=== PATIENT | male | born 1985 | race Caucasian/White ===

== ENCOUNTER → 2019-07-03 | Outpatient (CLI) | payer OTHER ==
[2019-07-04 09:33] LABS: BASOPHIL % 0.3 % (0-2); PLATELET COUNT 220 x10^3mcL (130-400); RED CELL DISTRIBUTION WIDTH 12.3 % (11.5-14.5)
[2019-07-04 09:39] LABS: ALBUMIN 4.4 g/dL (3.4-5.0); ALKALINE PHOSPHATASE 82 U/L (46-116); ALT/SGPT 33 U/L (16-63); AST/SGOT 16 U/L (15-37); BILIRUBIN DIRECT 0.11 mg/dL (0.0-0.2); BILIRUBIN TOTAL 0.8 mg/dL (0.20-1.00); CALCIUM 8.6 mg/dL (8.5-10.1); CARBON DIOXIDE 24.8 mmol/L (21-32); CHLORIDE SERUM 107 mmol/L (98-107); GFR1 > 60 mL/min; GLUCOSE SERUM 88 mg/dL (74-106); POTASSIUM SERUM 3.9 mmol/L (3.5-5.1); SODIUM SERUM 144 mmol/L (136-145)
[2019-07-04 09:41] LABS: TOTAL PROTEIN, SERUM 8.3 g/dL (6.4-8.2)
[2019-07-04 09:59] LABS: CHOLESTEROL 184 mg/dL (<200); CHOLESTEROL/HDL RATIO 5.4; HDL CHOLESTEROL 34 mg/dL (40-60); TRIGLYCERIDES 121 mg/dL (<150)
== END | disposition home or self-care (01) ==
LOC: RD 16:08
PROVIDERS: Internal Medicine
DX: Z00.00 Encounter for general adult medical examination without abnormal findings (principal); M54.9 Dorsalgia, unspecified

== ENCOUNTER 2019-07-30 22:47 | Emergency (ER) | payer OTHER ==
[~2019-07-30] VITALS: Ht 165.1 cm; Wt 79.8 kg
[2019-07-30 22:54] VITALS: Ht 165.1 cm; Wt 79.8 kg
[2019-07-31 00:02] LABS: BASOPHIL % 0.3 % (0-2); PLATELET COUNT 239 x10^3mcL (130-400); RED CELL DISTRIBUTION WIDTH 12.2 % (11.5-14.5)
[2019-07-31 00:17] LABS: CALCIUM 8.2 mg/dL (8.5-10.1); CARBON DIOXIDE 26.5 mmol/L (21-32); CHLORIDE SERUM 102 mmol/L (98-107); GFR1 > 60 mL/min; GLUCOSE SERUM 96 mg/dL (74-106); POTASSIUM SERUM 3.4 mmol/L (3.5-5.1); SODIUM SERUM 139 mmol/L (136-145)
[2019-07-31 00:27] LABS: ALBUMIN 4.1 g/dL (3.4-5.0); ALKALINE PHOSPHATASE 84 U/L (46-116); ALT/SGPT 27 U/L (16-63); AST/SGOT 15 U/L (15-37); BILIRUBIN TOTAL 0.6 mg/dL (0.20-1.00)
[2019-07-31 00:29] LABS: T3 TOTAL 1.45 ng/mL
[2019-07-31 00:30] LABS: TOTAL PROTEIN, SERUM 8.3 g/dL (6.4-8.2)
[2019-07-31 01:01] LABS: FREE T4 1.16 ng/dL (0.76-1.46); FREE THYROXINE INDEX 2.4 ug/dL (1.4-4.5); T4(THYROXINE) 6.8 ug/dL (4.7-13.3)
[2019-07-31 01:47] VITALS: BP 164/98
== END 2019-07-31 01:47 | disposition home or self-care (01) ==
LOC: ED 22:47
PROVIDERS: Emergency Medicine
DX: R07.89 Other chest pain (principal); R00.2 Palpitations; J45.909 Unspecified asthma, uncomplicated
CPT/HCPCS: 36415; 84439

== ENCOUNTER 2019-08-03 09:40 | Emergency (ER) | payer OTHER ==
[~2019-08-03] VITALS: Ht 165.1 cm; Wt 80.3 kg
[2019-08-03 09:46] VITALS: BP 157/81; Ht 165.1 cm; Wt 80.3 kg
== END 2019-08-03 10:16 | disposition home or self-care (01) ==
LOC: ED 09:40
DX: J45.909 Unspecified asthma, uncomplicated (principal)

== ENCOUNTER → 2019-09-25 | Outpatient (REF) | END | disposition home or self-care (01) | LOC: LB 12:40 | DX: U07.1 COVID-19 (principal) ==

== ENCOUNTER → 2020-05-27 | Outpatient (CLI) | payer OTHER ==
[2020-05-27 12:48] LABS: ALBUMIN 4.2 g/dL (3.4-5.0); ALKALINE PHOSPHATASE 75 U/L (46-116); ALT/SGPT 35 U/L (16-63); AST/SGOT 14 U/L (15-37); BILIRUBIN TOTAL 0.5 mg/dL (0.20-1.00); CALCIUM 9.3 mg/dL (8.5-10.1); CARBON DIOXIDE 28.9 mmol/L (21-32); CHLORIDE SERUM 105 mmol/L (98-107); CHOLESTEROL 203 mg/dL (<200); CHOLESTEROL/HDL RATIO 5.2; CREATININE SERUM 1.2 mg/dL (0.7-1.3); FREE T4 0.94 ng/dL (0.76-1.46); GFR1 > 60 mL/min; GLUCOSE SERUM 80 mg/dL (74-106); HDL CHOLESTEROL 39 mg/dL (40-60); SODIUM SERUM 143 mmol/L (136-145); TOTAL PROTEIN, SERUM 8.2 g/dL (6.4-8.2); TRIGLYCERIDES 177 mg/dL (<150)
[2020-05-27 13:06] LABS: BASOPHIL % 0.4 % (0.2-1.5); PLATELET COUNT 253 x10^3mcL (152-348); RED CELL DISTRIBUTION WIDTH 12.2 % (12.1-16.2)
== END | disposition home or self-care (01) ==
LOC: LB 11:52
DX: Z76.89 Persons encountering health services in other specified circumstances (principal)
CPT/HCPCS: 84439